=== PATIENT | female | born 1965 | race African-American/Black ===

== ENCOUNTER 2019-01-27 10:26 | Emergency (ER) | payer MEDICAID ==
[~2019-01-27] VITALS: Ht 154.9 cm; Wt 80.0 kg
[2019-01-27] MEDS ORDERED: ACETAMINOPHEN WITH CODEINE 300/30MG TABLET PO ONE (11:15)
[2019-01-27 12:40] VITALS: BP 138/85
== END 2019-01-27 12:50 | disposition home or self-care (01) ==
LOC: ER 10:26 → EDBD 10:26 → ER 12:50
DX: M25.562 Pain in left knee (principal); M79.644 Pain in right finger(s); W01.0XXA Fall on same level from slipping, tripping and stumbling without subsequent striking against object, initial encounter; Y93.89 Activity, other specified; Y92.512 Supermarket, store or market as the place of occurrence of the external cause; I10 Essential (primary) hypertension; F17.210 Nicotine dependence, cigarettes, uncomplicated; Z71.6 Tobacco abuse counseling
CPT/HCPCS: 73120; 73560; 99283; 99406